=== PATIENT | male | born 1970 | race Two or more races ===

== ENCOUNTER 2022-11-08 13:19 | Emergency (ER) | payer OTHER ==
[2022-11-08] MEDS ORDERED: ASPIRIN 81 MG CHEWABLE TABLET ONE (13:56)
[2022-11-08 14:05] LABS: Hematocrit 40.9 % (39.6-49.0); Lymphocytes % 35.1 % (15.3-44.8); MCV 87.1 fL (80-100); MPV 8.2 fL (7.6-11.3); Platelets 218 thou/uL (152-406)
[2022-11-08 14:21] LABS: BUN Blood Urea Nitrogen 17 mg/dL (7-18); Bicarbonate 27 mEq/L (21-32); Glomerular Filtration Rate 91 ml/min (=/>90); Glucose Level 278 mg/dL (74-106); Magnesium 1.9 mg/dL (1.6-2.4); Potassium 3.6 mEq/L (3.5-5.1); Sodium Level 136 mEq/L (136-145)
[2022-11-08 14:22] LABS: Troponin High Sensitivity < 3.0 pg/mL (<58.9)
--- NOTE | 2022-11-08 14:42 | RAD REPORT ---
EXAM DESCRIPTION: [facility] Single View11/08/2022 2:13 pm CLINICAL HISTORY: CHEST PAIN COMPARISON: No comparisons TECHNIQUE: Portable AP view of the chest. FINDINGS: The lungs are clear. No pneumothorax or effusion. The cardiomediastinal contours are unrem arkable. IMPRESSION: No acute cardiopulmonary process.
--- NOTE | 2022-11-08 15:02 | ER ---
Nurse's Notes [facility] Name: Ricki Elkins Age: 52 yrs Sex: Male : 1970 Arrival Date: 11/08/2022 Time: 13:19 Bed 19 [facility] MD: Diagnosis: Chest pain, unspecified;Hyperglycemia, unspecified Presentation: 11/08 13:37 Chief complaint: Patient states: CP that has been ongoing x 2 days. Worse over the past ss 2 days. Coronavirus screen: Client denies travel out of the [place] in the last 14 days. Ebola Screen: Patient denies exposure to infectious person. Patient denies travel to an Ebola-affected area in the 21 days before illness onset. Initial Sepsis Screen: Does the patient meet any 2 criteria? No. Patient's initial sepsis screen is negative. Does the patient have a suspected source of infection? No. Patient's initial sepsis screen is negative. Risk Assessment: Do you want to hurt yourself or someone else? Patient reports no desire to harm self or others. Onset of symptoms was November 01, 2022. 13:37 Method Of Arrival: EMS: [facility] ss 13:37 Acuity: LUKE 3 ss Historical: - Allergies: 13:40 Depakote; ss 13:40 Erythromycin; ss - PMHx: 13:40 Diabetes mellitus; Depressive disorder; Kidney stone; ss - PSHx: 13:40 Lithotripsy; hernia repair; ss - Immunization history:: Client reports having NOT received the Covid vaccine. - Social history:: Smoking status: Reported history of juuling and/or vaping. Screenin:45 [facility] ED Fall Risk Assessment (Adult) History of falling in the last 3 months, aa5 including since admission No falls in past 3 months (0 pts) Confusion or Disorientation No (0 pts) Intoxicated or Sedated No (0 pts) Impaired Gait No (0 pts) Mobility Assist Device Used No (0 pt) Altered Elimination No (0 pt) Score/Fall Risk Level 0 - 2 = Low Risk Oriented to surroundings, Maintained a safe environment, Educated pt \T\ family on fall prevention, incl call for assistance when getting out of bed. Abuse screen: Denies threats or abuse. Nutritional screening: No deficits noted. Tuberculosis screening: No symptoms or risk factors identified. Assessment: 13:45 General: Appears comfortable, Behavior is calm, cooperative. Pain: Complains of pain in aa5 left lateral anterior chest Pain does not radiate. Pain currently is 4 out of 10 on a pain scale. Quality of pain is described as aching, Pain began 2-3 days ago. Is intermittent, Aggravated by movement. Neuro: Level of Consciousness is awake, alert, obeys commands, Oriented to person, place, time, situation. Cardiovascular: Reports chest pain, Heart tones S1 S2 present Rhythm is sinus rhythm. Respiratory: Airway is patent Respiratory effort is even, unlabored, Respiratory pattern is regular, symmetrical, Breath sounds are clear bilaterally. Denies cough, shortness of breath. GI: Abdomen is round non-distended, Bowel sounds present X 4 quads. Abd is soft and non tender X 4 quads. Patient currently denies diarrhea, nausea, vomiting. : No signs and/or symptoms were reported regarding the genitourinary system. EENT: Absence of teeth noted. . Derm: Skin is pink, warm \T\ dry. Musculoskeletal: Range of motion: intact in all extremities. 14:15 Reassessment: Patient is alert, oriented x 3, equal unlabored respirations, skin aa5 warm/dry/pink. 15:20 Reassessment: Patient is alert, oriented x 3, equal unlabored respirations, skin aa5 warm/dry/pink. Vital Signs: 13:23 BP 119 / 84; Pulse 91; Resp 17; Temp 97.6(O); Pulse Ox 98% on R/A; rs5 13:37 BP 119 / 84; Pulse 89; Resp 16; Pulse Ox 99% on R/A; Weight 109.77 kg; Height 5 ft. 9 ss in. ; Pain 5/10; 14:15 BP 131 / 64; Pulse 85; Resp 18; Pulse Ox 99% on R/A; rs5 15:00 BP 122 / 72; Pulse 85; Resp 18 S; Temp 97.9(TE); Pulse Ox 98% on R/A; aa5 13:37 Body Mass Index 35.74 (109.77 kg, 175.26 cm) ss 13:37 Pain Scale: Adult ss ED Course: 13:21 Patient arrived in ED. rg4 13:24 Blaine Bojorquez DO is Attending Physician. ms3 13:28 Ying Patel, RN is Primary Nurse. aa5 13:40 Triage completed. ss 13:40 EKG done, by ED staff, reviewed by Blaine Bojorquez DO. aa5 13:40 Arm band placed on right wrist. ss 13:45 Patient has correct armband on for positive identification. Placed in gown. Bed in low aa5 position. Call light in reach. Side rails up X2. Client placed on continuous cardiac and pulse oximetry monitoring. NIBP monitoring applied. 13:50 Initial lab(s) drawn, by me, sent to lab. Inserted saline lock: 20 gauge in right upper aa5 arm, using aseptic technique. Blood collected. 14:14 XRAY Chest (1 view) In Process Unspecified. EDMS 14:52 No provider procedures requiring assistance completed. Patient maintains SpO2 aa5 saturation greater than 95% on room air. 15:02 Caleb Brandt MD is Referral Physician. ms3 15:20 IV discontinued, intact, bleeding controlled, No redness/swelling at site. Pressure aa5 dressing applied. Administered Medications: 13:45 Drug: Aspirin PO Chewable Tablet 324 mg Route: PO; aa5 15:20 Follow up: Response: No adverse reaction aa5 Medication: 15:20 VIS not applicable for this client. aa5 Outcome: 15:02 Discharge ordered by . ms3 15:20 Discharged to home ambulatory, with significant other. aa5 15:20 Condition: stable 15:20 Discharge instructions given to patient, Instructed on discharge instructions, follow up and referral plans. medication usage, Demonstrated understanding of instructions, follow-up care, medications, Prescriptions given X 1. 15:29 Patient left the ED. aa5 Signatures: Dispatcher [employer]DA[employer] Ying Patel, RN RN aa5 Mary Cunningham, ANU RN Dara Quintero rg4 Blaine Bojorquez DO DO ms3 Rene Felix, RN RN rs5
--- NOTE | 2022-11-08 15:03 | EDPHYS ---
Physician Documentation [facility] Name: Ricki Elkins Age: 52 yrs Sex: Male : 1970 Arrival Date: 11/08/2022 Time: 13:19 Bed 19 Private MD: ED Physician Blaine Bojorquez HPI: 11/08 13:47 This 52 yrs old [place] Male presents to ER via EMS with complaints of Chest Pain, ms3 Breathing Difficulty. 13:47 52-year-old male with past medical history of diabetes presents for 1 week of chest ms3 pain that is become worse over the last 2 days. The pain is rated a 5/10 and described as stabbing. Shortness of breath is associated with patient's symptoms. Patient states the pain is worse with movement. Patient states the pain improves when pressure is applied to the area. Patient notes he did unload a trailer and move a 150 pound [place] off the trailer.. Historical: - Allergies: 13:40 Depakote; ss 13:40 Erythromycin; ss - PMHx: 13:40 Diabetes mellitus; Depressive disorder; Kidney stone; ss - PSHx: 13:40 Lithotripsy; hernia repair; ss - Immunization history:: Client reports having NOT received the Covid vaccine. - Social history:: Smoking status: Reported history of juuling and/or vaping. ROS: 13:47 Constitutional: Negative for fever, and chills. ENT: Negative for injury, pain, and ms3 discharge, Neck: Negative for injury, pain, and swelling, Cardiovascular: Negative for chest pain, and palpitations. Abdomen/GI: Negative for abdominal pain, nausea, vomiting, diarrhea, and constipation. 13:47 MS/Extremity: Negative for injury and deformity, Skin: Negative for injury, rash, and discoloration. 13:47 Respiratory: Positive for shortness of breath. 13:47 All other systems are negative. Exam: 13:47 Constitutional: This is a well developed, well nourished patient who is awake, alert, ms3 and in no acute distress. Head/Face: Normocephalic, atraumatic. Chest/axilla: Normal chest wall appearance and motion. Nontender with no deformity. Cardiovascular: Regular rate and rhythm with a normal S1 and S2. No gallops, murmurs, or rubs. Normal PMI, no JVD. No pulse deficits. Respiratory: Lungs have equal breath sounds bilaterally, clear to auscultation and percussion. No rales, rhonchi or wheezes noted. No increased work of breathing, no retractions or nasal flaring. Abdomen/GI: Soft, non-tender, with normal bowel sounds. No distension or tympany. No guarding or rebound. No evidence of tenderness throughout. Skin: Warm, dry with normal turgor. Normal color with no rashes, no lesions, and no evidence of cellulitis. MS/ Extremity: Pulses equal, no cyanosis. Neurovascular intact. Full, normal range of motion. 13:47 ECG was reviewed by the Attending Physician. Vital Signs: 13:23 BP 119 / 84; Pulse 91; Resp 17; Temp 97.6(O); Pulse Ox 98% on R/A; rs5 13:37 BP 119 / 84; Pulse 89; Resp 16; Pulse Ox 99% on R/A; Weight 109.77 kg; Height 5 ft. 9 ss in. ; Pain 5/10; 14:15 BP 131 / 64; Pulse 85; Resp 18; Pulse Ox 99% on R/A; rs5 15:00 BP 122 / 72; Pulse 85; Resp 18 S; Temp 97.9(TE); Pulse Ox 98% on R/A; aa5 13:37 Body Mass Index 35.74 (109.77 kg, 175.26 cm) ss 13:37 Pain Scale: Adult ss MDM: 13:35 Patient medically screened. ms3 14:35 Independent interpretation of the following test(s) in the Emergency Department EKG: ms3 See my EKG interpretation above X-Ray: My interpretation is CXR image reviewed by me: negative acute. telemetry monitor: rate is 83 beats/min, Rhythm is normal sinus rhythm, regular, with no ectopy, Interpretation: normal rate, normal rhythm. 15:00 Differential diagnosis: abnormal EKG, acute myocardial infarction, coronary artery ms3 disease. HEART Score: History: Slightly Suspicious (0), ECG: Normal (0), Age: > 45 and < 65 years (1), Risk Factors: 1 or 2 risk factors (1), [DM] [Active Smoker] Troponin: < or = 1 x Normal Limit (0), Total Score = 2. The patient was given aspirin in the Emergency Department. Data reviewed: vital signs, nurses notes, lab test result(s), EKG, radiologic studies, and as a result, I will discharge patient. Consideration of Admission/Observation Escalation of care including admission/observation considered. HEART score 2, Troponin negative. I considered the following discharge prescriptions or medication management in the emergency department Medications were administered in the Emergency Department. See MAR. Counseling: I had a detailed discussion with the patient and/or guardian regarding: the historical points, exam findings, and any diagnostic results supporting the discharge/admit diagnosis, lab results, radiology results, the need for outpatient follow up, to return to the emergency department if symptoms worsen or persist or if there are any questions or concerns that arise at home. Special discussion: Based on the patient's history, exam, and Dx evaluation, there is no indication for emergent intervention or inpatient Tx. It is understood by the patient/guardian that if the Sx's persist or worsen they need to return immediately for re-evaluation. ED course: Discussed labs, chest x-ray, EKG with patient and his . Patient to follow-up with Dr. Brandt in 1 to 2 days. Patient understands and agrees with plan. All questions were answered. Return precautions discussed include worsening symptoms, or any other concerns. 11/08 13:36 Order name: Basic Metabolic Panel; Complete Time: 14:33 ms3 11/08 13:36 Order name: CBC with Diff; Complete Time: 14:33 ms3 11/08 13:36 Order name: Magnesium; Complete Time: 14:33 ms3 11/08 13:36 Order name: Troponin HS; Complete Time: 14:33 ms3 11/08 13:36 Order name: XRAY Chest (1 view); Complete Time: 14:56 ms3 11/08 13:36 Order name: EKG; Complete Time: 13:36 ms3 11/08 13:36 Order name: Cardiac monitoring; Complete Time: 13:39 ms3 11/08 13:36 Order name: EKG - Nurse/Tech; Complete Time: 13:40 ms3 11/08 13:36 Order name: IV Saline Lock; Complete Time: 13:55 ms3 11/08 13:36 Order name: Labs collected and sent; Complete Time: 13:55 ms3 11/08 13:36 Order name: O2 Per Protocol; Complete Time: 13:40 ms3 11/08 13:36 Order name: O2 Sat Monitoring; Complete Time: 13:40 ms3 EC:47 Rate is 83 beats/min. Rhythm is regular. QRS [place] is Normal. MI interval is normal. QRS ms3 interval is normal. Clinical impression: Normal ECG. Interpreted by me. Reviewed by me. Administered Medications: 13:45 Drug: Aspirin PO Chewable Tablet 324 mg Route: PO; aa5 15:20 Follow up: Response: No adverse reaction aa5 Disposition Summary: 11/08/22 15:02 Discharge Ordered Location: Home ms3 Condition: Stable ms3 Diagnosis - Chest pain, unspecified ms3 - Hyperglycemia, unspecified ms3 Followup: ms3 - With: Caleb Brandt MD - When: 1 - 2 days - Reason: Recheck today's complaints Discharge Instructions: - Discharge Summary Sheet ms3 - Nonspecific Chest Pain, Adult ms3 - Hyperglycemia ms3 Forms: - Family Work Release bd - Medication Reconciliation Form ms3 - Thank You Letter ms3 - Antibiotic Education ms3 - Prescription Opioid Use ms3 - Patient Portal Instructions ms3 - Leadership Thank You Letter ms3 Prescriptions: - Ibuprofen 600 mg Oral Tablet - take 1 tablet by ORAL route every 6 hours As needed take with food; 30 tablet; ms3 Refills: 0, Product Selection Permitted Signatures: Dispatcher [employer] Ying Logan, RN RN aa5 Mary Cunningham RN RN ss Blaine Bojorquez, DO DO ms3
[2022-11-08 16:34] VITALS: TEMP 97.6
[2022-11-08 16:40] VITALS: O2SAT 99
[2022-11-08 16:41] VITALS: BP 131/64
--- NOTE | 2022-11-09 18:29 | EKG ---
Test Date: 2022-11-08 Test Time: 13:37:54 Brusher: DANIELLE MEASUREMENT RESULTS: Intervals: Rate: 83 HI: 170 QRSD: 96 QT: 372 QTc: 437 [place]: P: 9 HI: 170 QRS: -4 T: 44 INTERPRETIVE STATEMENTS: Normal sinus rhythm Normal ECG No previous ECG available for comparison Electronically Signed On 11-09-22 18:26:14 CDT by Caleb Brandt
== END 2022-11-08 15:29 | disposition home or self-care (01) ==
LOC: ER 13:19
DX: R07.9 Chest pain, unspecified (principal); E11.65 Type 2 diabetes mellitus with hyperglycemia; Z88.3 Allergy status to other anti-infective agents; Z88.8 Allergy status to other drugs, medicaments and biological substances
CPT/HCPCS: 36415; 71045; 80048; 83735; 84484; 85025; 93005; 99285

== ENCOUNTER → 2023-04-24 | Emergency (ER) | payer SELFPAY ==
[~2023-04-24] MED LIST: MORPHINE 4 MG/ML SYR ONE; NA CHLORIDE 0.9% 1,000 ML ONE; ONDANSETRON 4 MG/2 ML VIAL ONE
[2023-04-24 13:12] LABS: Absolute Lymphocytes (CBC) 1.7 K/uL (0.7-4.9); Hematocrit 44.7 % (39.6-49.0); MPV 8.5 fL (7.6-11.3); Platelets 200 thou/uL (152-406); RBC Red Blood Cell Count 5.26 M/uL (4.33-5.43)
[2023-04-24 13:21] LABS: Specific Gravity > 1.030 (1.005-1.030); Urine Bacteria None Seen /HPF (<20); Urine Bilirubin NEGATIVE (Negative); Urine Blood Trace (Negative); Urine Clarity Clear (Clear); Urine Color Colorless (Yellow); Urine Glucose 4+ (Over) (Negative); Urine Protein 1+ (Negative); Urine RBC <5 /HPF (None Seen); Urine Urobilinogen Normal (Normal)
[2023-04-24 13:25] LABS: Protime INR 0.98
[2023-04-24 13:34] LABS: Bilirubin Total 0.5 mg/dL (0.2-1.0); Potassium 4.1 mEq/L (3.5-5.1)
--- NOTE | 2023-04-24 15:09 | RAD REPORT ---
EXAM DESCRIPTION: CT - Abdomen Pelvis W Contrast - 04/24/2023 1:42 pm CLINICAL HISTORY: ab pain, rectal bleeding COMPARISON: No comparisons TECHNIQUE: Thin cut axial CT imaging of the abdomen and pelvis was performed following intravenous a dministration of 100 mL Isovue 300. Multiplanar reformats were generated and reviewed. All CT scans are performed using dose optimization technique as appropriate and may include automated exposure control or mA/KV adjustment according to patient size. FINDINGS: No suspicious findings in the lung bases. The liver, spleen, adrenal glands, and pancreas show no suspicious findings. Gallbladder and biliary tree are also without suspicious finding. Symmetric renal function is seen with no hydronephrosis or suspicious renal mass. Left lower pole non obstructing 7 mm calculus. Multiple cortical fluid density cysts, not exceeding 1.8 cm, most are subo ptimally characterized given size. No dilated bowel loops or bowel wall thickening. The appendix is unremarkable. No free air, free flui d or inflammatory stranding. Large infraumbilical hernia containing nondistended loops of small bowel , hernia sac measures 1.4 x 6.8 cm. Small right inguinal fat containing hernia. No mass or bulky lymp hadenopathy. The urinary bladder is without significant finding. No suspicious bony findings. IMPRESSION: Left lower pole nonobstructing 7 mm calculus. No other acute intra-abdominal process. Large infraumbilical hernia containing nondistended loops of small bowel.
--- NOTE | 2023-04-24 15:34 | EDPHYS ---
Physician Documentation [facility] Name: Ricki Elkins Age: 52 yrs Sex: Male : 1970 Arrival Date: 04/24/2023 Time: 10:45 Bed 20 Private MD: ED Physician Dae Mccallum HPI: 04/24 17:38 This 52 yrs old [place] Male presents to ER via Ambulatory with complaints of Rectal rt Bleeding. 17:38 Patient presents to the ED with lower abdominal pain, rectal bleeding described as rt maroon-colored stools starting last night. He did have a bowel movement that was a brown stool. Denies other acute complaints at this time, symptoms are moderate severity, no other aggravating elevating factors.. Historical: - Allergies: 10:59 Depakote; bp 10:59 Erythromycin; bp - PMHx: 10:59 depressive disorder; diabetes mellitus; Kidney stone; bp - PSHx: 10:59 hernia repair; Lithotripsy; bp - Immunization history:: Adult Immunizations up to date. - Social history:: Smoking status: unknown. - Family history:: not pertinent. ROS: 17:38 Constitutional: Negative for fever, chills, and weight loss, Cardiovascular: Negative rt for chest pain, palpitations, and edema, Respiratory: Negative for shortness of breath, cough, wheezing, and pleuritic chest pain, MS/Extremity: Negative for injury and deformity, Skin: Negative for injury, rash, and discoloration, Neuro: Negative for headache, weakness, numbness, tingling, and seizure, Psych: Negative for depression, anxiety, suicide ideation, homicidal ideation, and hallucinations, 17:38 Abdomen/GI: Positive for abdominal pain, rectal bleeding, Exam: 17:38 Constitutional: This is a well developed, well nourished patient who is awake, alert, rt and in no acute distress. Head/Face: Normocephalic, atraumatic. Chest/axilla: Normal chest wall appearance and motion. Nontender with no deformity. No lesions are appreciated. Cardiovascular: Regular rate and rhythm with a normal S1 and S2. No gallops, murmurs, or rubs. Normal PMI, no JVD. No pulse deficits. Respiratory: Lungs have equal breath sounds bilaterally, clear to auscultation and percussion. No rales, rhonchi or wheezes noted. No increased work of breathing, no retractions or nasal flaring. Skin: Warm, dry with normal turgor. Normal color with no rashes, no lesions, and no evidence of cellulitis. MS/ Extremity: Pulses equal, no cyanosis. Neurovascular intact. Full, normal range of motion. Neuro: Awake and alert, GCS 15, oriented to person, place, time, and situation. Cranial nerves II-XII grossly intact. Motor strength 5/5 in all extremities. Sensory grossly intact. Cerebellar exam normal. Normal gait. Psych: Awake, alert, with orientation to person, place and time. Behavior, mood, and affect are within normal limits. 17:38 Abdomen/GI: Large easily reducible hernia to the lower abdomen, no focal tenderness otherwise, distention. There is a skin tag at the anal verge, rectal exam reveals brown stool, no palpable hemorrhoids, Vital Signs: 10:58 BP 154 / 94; Pulse 81; Resp 16; Temp 98.1; Pulse Ox 98% ; bp 13:05 BP 122 / 72; Pulse 78; Resp 16; Pulse Ox 99% on R/A; ko1 14:56 BP 129 / 78; Pulse 74; Resp 16; Pulse Ox 99% ; ko1 15:44 BP 130 / 74; Pulse 81; Resp 16; Pulse Ox 100% ; ko1 MDM: 11:05 Patient medically screened. rt 17:38 Differential diagnosis: Hemorrhoids, diverticulitis, colitis, hernia. Data reviewed: rt vital signs, nurses notes, lab test result(s), radiologic studies. Consideration of Admission/Observation Escalation of care including admission/observation considered. Patient is requesting discharge, no obvious ongoing bleeding in the emergency department as the patient has an essentially normal rectal exam. Hernia was reduced with improvement of abdominal pain. No other acute findings are found. Patient instructed to follow-up with gastroenterology and general surgery as an outpatient. Return precautions discussed.. I considered the following discharge prescriptions or medication management in the emergency department Medications were administered in the Emergency Department. See MAR. Independent interpretation of the following test(s) in the Emergency Department CT Scan: My interpretation is No bowel obstruction seen on interpretation of CT scan images. Counseling: I had a detailed discussion with the patient and/or guardian regarding the historical points, exam findings, and any diagnostic results supporting the discharge/admit diagnosis, lab results, radiology results, the need for outpatient follow up, to return to the emergency department if symptoms worsen or persist or if there are any questions or concerns that arise at home. Response to treatment: the patient's symptoms have markedly improved after treatment. 04/24 11:08 Order name: CBC with Diff; Complete Time: 13:28 rt 04/24 11:08 Order name: CMP; Complete Time: 13:57 rt 04/24 11:08 Order name: Lipase; Complete Time: 13:57 rt 04/24 11:08 Order name: Urinalysis w/ reflexes; Complete Time: 13:28 rt 04/24 11:08 Order name: Type And Screen; Complete Time: 13:57 rt 04/24 11:08 Order name: PT-INR; Complete Time: 13:28 rt 04/24 11:08 Order name: Ptt, Activated; Complete Time: 13:28 rt 04/24 11:08 Order name: CT Abd/Pelvis - IV Contrast Only; Complete Time: 15:14 rt 04/24 11:08 Order name: IV Saline Lock; Complete Time: 13: rt 04/24 11:08 Order name: Labs collected and sent; Complete Time: 13:01 rt Administered Medications: 13:01 Drug: NS 0.9% IV 1000 ml IV at 1 bolus Per protocol; 1000 mL bolus Route: IV; Rate: 1 ko1 bolus; Site: left forearm; 13:01 Not Given (Patient Refused): ondansetron 4 mg IVP once; over 2 minutes ko1 13:01 Not Given (Patient Refused): morphineor iv 4 mg IVP once over 4 mins ko1 Disposition Summary: 04/24/23 15:33 Discharge Ordered Notes: Location: Home rt Condition: Stable rt Diagnosis - Rectal bleeding, resolved rt - Infraumbilical hernia rt Followup: rt - With: Elvis Mcdermott MD - When: 2 - 3 days - Reason: Followup: rt - With: Sergey Parra MD - When: 2 - 3 days - Reason: Discharge Instructions: - Discharge Summary Sheet rt - Hernia, Adult rt - Rectal Bleeding rt Forms: - Medication Reconciliation Form rt - Thank You Letter rt - Antibiotic Education rt - Prescription Opioid Use rt - Patient Portal Instructions rt - Leadership Thank You Letter rt Prescriptions: - dicyclomine 10 mg Oral capsule - take 1 capsule ORAL route 3 times per day; 15 capsule; Refills: 0, Product rt Selection Permitted Signatures: Dispatcher [facility] Brennen Johnson RN RN bp Savanna Bhatti RN RN ko1 Dae Mccallum MD MD rt
--- NOTE | 2023-04-24 15:34 | ER ---
Nurse's Notes [facility] Name: Ricki Elkins Age: 52 yrs Sex: Male : 1970 Arrival Date: 04/24/2023 Time: 10:45 Bed 20 Private MD: Diagnosis: Rectal bleeding, resolved;Infraumbilical hernia Presentation: 04/24 10:58 Chief complaint: Patient states: SEVERAL BLOODY BM SINCE LAST PM. Coronavirus screen: bp At this time, the client does not indicate any symptoms associated with coronavirus-19. Ebola Screen: No symptoms or risks identified at this time. Initial Sepsis Screen: Does the patient meet any 2 criteria? No. Patient's initial sepsis screen is negative. Does the patient have a suspected source of infection? No. Patient's initial sepsis screen is negative. Risk Assessment: Do you want to hurt yourself or someone else?. Onset of symptoms is unknown. 10:58 Method Of Arrival: Ambulatory bp 10:58 Acuity: LUKE 3 bp Triage Assessment: 10:59 General: Appears uncomfortable, Behavior is calm, cooperative, appropriate for age. bp Pain: Complains of pain in left flank. Historical: - Allergies: 10:59 Depakote; bp 10:59 Erythromycin; bp - PMHx: 10:59 depressive disorder; diabetes mellitus; Kidney stone; bp - PSHx: 10:59 hernia repair; Lithotripsy; bp - Immunization history:: Adult Immunizations up to date. - Social history:: Smoking status: unknown. - Family history:: not pertinent. Screenin:00 [facility] ED Fall Risk Assessment (Adult) History of falling in the last 3 months, ko1 including since admission No falls in past 3 months (0 pts) Confusion or Disorientation No (0 pts) Intoxicated or Sedated No (0 pts) Impaired Gait No (0 pts) Mobility Assist Device Used No (0 pt) Altered Elimination No (0 pt) Score/Fall Risk Level 0 - 2 = Low Risk Oriented to surroundings, Maintained a safe environment, Educated pt \T\ family on fall prevention, incl call for assistance when getting out of bed, Assessed \T\ reinforced patient's understanding of fall precautions, Provided non-skid footwear, Hourly rounding (assess needs \T\ fall precautionary measures) done, Used ambulatory aids as needed (educated on \T\ assisted with), Used gait belt as appropriate. Abuse screen: Denies threats or abuse. Denies injuries from another. Nutritional screening: No deficits noted. Tuberculosis screening: No symptoms or risk factors identified. Assessment: 13:00 General: Appears in no apparent distress. Behavior is calm, cooperative, appropriate ko1 for age. Pain: Denies pain. Neuro: No deficits noted. Cardiovascular: No deficits noted. Respiratory: No deficits noted. GI: Reports rectal bleeding. : No deficits noted. EENT: No deficits noted. Derm: No deficits noted. Musculoskeletal: No deficits noted. Vital Signs: 10:58 BP 154 / 94; Pulse 81; Resp 16; Temp 98.1; Pulse Ox 98% ; bp 13:05 BP 122 / 72; Pulse 78; Resp 16; Pulse Ox 99% on R/A; ko1 14:56 BP 129 / 78; Pulse 74; Resp 16; Pulse Ox 99% ; ko1 15:44 BP 130 / 74; Pulse 81; Resp 16; Pulse Ox 100% ; ko1 ED Course: 10:49 Patient arrived in ED. im 10:59 Triage completed. bp 10:59 Dae Mccallum MD is Attending Physician. rt 10:59 Arm band placed on. bp 12:36 Savanna Bhatti, ANU is Primary Nurse. ko1 12:57 Accessed peripheral vein via ultrasound, utilizing dynamic ultrasound technique Blood cm10 collected. 20G in Left FA Missed attempt(s): 20 gauge in right forearm. antecubital area. Bleeding controlled, band aid applied, catheter tip intact. 13:00 Patient has correct armband on for positive identification. Placed in gown. Bed in low ko1 position. Call light in reach. Side rails up X 1. Client placed on continuous cardiac and pulse oximetry monitoring. NIBP monitoring applied. nurse monitoring on. Door closed. Noise minimized. Lights dimmed. Warm blanket given. 13:01 Type And Screen Sent. ko1 13:01 PT-INR Sent. ko1 13:01 Ptt, Activated Sent. ko1 13:01 CBC with Diff Sent. ko1 13:01 CMP Sent. ko1 13:01 Lipase Sent. ko1 13:03 Urinalysis w/ reflexes Sent. cm10 13:43 CT Abd/Pelvis - IV Contrast Only In Process Unspecified. EDMS 14:56 Provided Education on: na. ko1 14:56 No provider procedures requiring assistance completed. ko1 15:33 Elvis Mcdermott MD is Referral Physician. rt 15:33 Sergey Parra MD is Referral Physician. rt 15:44 IV discontinued, intact, bleeding controlled, No redness/swelling at site. Pressure ko1 dressing applied. Administered Medications: 13:01 Drug: NS 0.9% IV 1000 ml IV at 1 bolus Per protocol; 1000 mL bolus Route: IV; Rate: 1 ko1 bolus; Site: left forearm; 13:01 Not Given (Patient Refused): ondansetron 4 mg IVP once; over 2 minutes ko1 13:01 Not Given (Patient Refused): morphineor iv 4 mg IVP once over 4 mins ko1 Medication: 13:00 VIS not applicable for this client. ko1 Outcome: 15:33 Discharge ordered by . rt 15:44 Discharged to home ambulatory, ko1 15:44 Condition: stable 15:44 Discharge instructions given to patient, Instructed on discharge instructions, follow up and referral plans. medication usage, Demonstrated understanding of instructions, follow-up care, medications, Prescriptions given X 1, 15:50 Patient left the ED. ko1 Signatures: Dispatcher [employer] EDMS Brennen Christie RN RN bp Savanna Bhatti RN RN ko1 Dae Mccallum MD MD rt Coni Tejada Clarissa, RN RN cm10
[2023-04-24 17:30] VITALS: BP 130/74; TEMP 98.1; O2SAT 100
== END ==
LOC: ER 10:45
DX: K42.9 Umbilical hernia without obstruction or gangrene (principal)
CPT/HCPCS: 36415; 74177; 80053; 81001; 83690; 85025; 85610; 85730; 86850; 86900; 86901; J2405; J7030; Q9967

== ENCOUNTER 2024-01-30 19:24 | Emergency (ER) | payer OTHER ==
[2024-01-30] MEDS ORDERED: ONDANSETRON 4 MG/2 ML VIAL ONE (19:43)
[2024-01-30] MEDS ORDERED: MORPHINE 4 MG/ML SYR ONE (19:43)
--- NOTE | 2024-01-30 20:17 | RAD REPORT ---
EXAM: CT brain without contrast HISTORY: PAIN COMPARISON: None TECHNIQUE: Multiple contiguous axial images were obtained and a CT of the brain without contrast. Sag ittal and coronal reformats were performed. One or more of the following dose reduction techniques were used: Automated exposure control, adjust ment of the mA and/or kV according to patient size, and/or iterative reconstruction. FINDINGS: No evidence of hydrocephalus, intracranial hemorrhage, or extra-axial fluid collection. The brain is normal in morphology. No evidence of midline shift or areas of brain edema. The calvarium is intact. The visualized paranasal sinuses and mastoid air cells are essentially clear . IMPRESSION: No evidence of acute intracranial abnormality. EXAM: CT of the cervical spine without contrast HISTORY: Neck pain, injury PAIN TECHNIQUE: Multiple contiguous axial images were obtained in a CT of the cervical spine without contr ast. Sagittal and coronal reformats were performed. FINDINGS: The vertebral bodies demonstrate normal height and alignment. No evidence of acute fracture or subluxation.. Mild multilevel degenerative changes are seen in the lower cervical levels. No prevertebral soft tissue swelling is seen. The posterior facets are well aligned. Normal alignment of the skull base with the cervical spine is seen. The lung apices are unremarkable. IMPRESSION: No evidence of acute osseous abnormality of the cervical spine.
--- NOTE | 2024-01-30 20:23 | RAD REPORT ---
EXAM: CT CHEST, ABDOMEN AND PELVIS WITHOUT CONTRAST CLINICAL INDICATION: [facility] TECHNIQUE: CT chest, abdomen and pelvis was performed without contrast, as per department protocol. A xial, sagittal and coronal reconstructions were obtained. One or more of the following dose reduction techniques were used: Automated exposure control, adjustment of the mA and/or kV according to patient size, and/or iterative reconstruction. Unless otherwise specified, incidental findings do not require dedicated imaging follow-up. Examination is limited by the lack of intravenous contrast material. COMPARISON: No prior exam. FINDINGS: LUNGS: Mild linear atelectasis in both posterior lung bases. PLEURA: No pleural effusion. No pneumothorax. MEDIASTINUM AND LYMPH NODES: No mediastinal mass or fluid collection. Normal size mediastinal, hilar, and axillary lymph nodes. OSSEOUS STRUCTURES AND CHEST WALL: Vertical fracture is present right sternal manubrium. This extends into the right sternoclavicular joint. LIVER: Normal in size and contour. No focal lesion or biliary dilatation. Grossly unremarkable gallbl adder. PANCREAS: No mass, ductal dilation, or [place]-pancreatic fluid. SPLEEN: Normal size. No focal lesion. ADRENALS: Normal; no mass. KIDNEYS: Normal size and contour. No hydronephrosis. URINARY BLADDER: Normal contour. GASTROINTESTINAL TRACT: No bowel obstruction, free air, significant free fluid or abscess. Moderate to large ventral hernia is present along the midline and containing both small and large bowel without obstruction. APPENDIX: Normal appendix. LYMPH NODES: No lymphadenopathy. MUSCULOSKELETAL: Posterior aspect of the right eighth and ninth ribs likely fractured. Equivocal left posterior inferior rib deformities also present. Left transverse L1, L2, L3 process fractures. OTHER: Sigmoid diverticulosis coli without diverticulitis. IMPRESSION: Fracture of the right sternal manubrium extending to the level of the right SC joint. Inferior posterior nondisplaced rib fractures on the right and equivocally on the left as detailed. Left lumbar transverse processes fractures as detailed. Large midline ventral hernia.
[2024-01-30] MEDS ORDERED: HYDROMORPHONE HCL 1 MG/ML INJ ONE (20:37)
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
[2024-01-30 21:58] VITALS: TEMP 97.8
[2024-01-30 22:01] VITALS: BP 146/91; O2SAT 96
== END 2024-01-30 21:36 | disposition home or self-care (01) ==
LOC: ER 19:24
DX: S22.41XA Multiple fractures of ribs, right side, initial encounter for closed fracture (principal); S22.21XA Fracture of manubrium, initial encounter for closed fracture; S12.000A Unspecified displaced fracture of first cervical vertebra, initial encounter for closed fracture; S12.100A Unspecified displaced fracture of second cervical vertebra, initial encounter for closed fracture; S12.200A Unspecified displaced fracture of third cervical vertebra, initial encounter for closed fracture; V49.49XA Driver injured in collision with other motor vehicles in traffic accident, initial encounter
CPT/HCPCS: 70450; 71250; 72125; 74176; J1171; J2405

== ENCOUNTER 2024-06-02 12:18 | Emergency (ER) | payer OTHER ==
--- OUTSIDE RECORDS SUMMARY | 2024-06-02 12:22 | XMS REPORT | Continuity of Care Document ---
Author Name Unknown Address [address] [place] [address] [facility] Address [address] [place] [address] Care Team Providers Care Paralegal Assistant Name Role Phone Jenny Fleming Primary Care Physician Medications Ordered Medication Name Filled Medication Name Start Date Stop Date Current Medication? Ordering Clinician Indication Dosage Frequency Signature (SIG) Comments Components Source Trulicity 0.75 mg/0.5 mL subcutaneou s pen injector 05-28 00:00: 00 Yes mg/0.5 mL Blaise Ureña albuterol sulfate HFA 90 mcg/actuati on aerosol inhaler 05-28 00:00: 00 Yes 1mcg/ac tuation Blaise Ureña cetirizine 10 mg tablet 05-28 00:00: 00 Yes 1mg Blaise Ureña benzonatate 100 mg capsule - 00:00: 00 Yes 12mg Blaise Ureña Protonix 40 mg tablet,reny yed release - 00:00: 00 Yes 1mg Blaise Ureña Janumet XR 100 mg-1,000 mg tablet,exte nded release -20 00:00: 00 Yes 1mg Blaise Ureña ibuprofen 800 mg tablet -20 00:00: 00 Yes 1mg Blaise Ureña cyclobenzap rine 5 mg tablet -20 00:00: 00 Yes 1mg Blaise Ureña Vital Signs Vital Name Observation Time Observation Value Comments S aaron BP Systolic 2024-05-28 09:06:00 145 mm[Hg] Sang Ureña BP Diastolic 2024-05-28 09:06:00 93 mm[Hg] [place] phen F Niranjan Weight Measured 2024-05-28 09:06:00 228.00 pounds Blaise F Niranjan Height Measured 2024-05-28 09:06:00 69.00 inches Blaise F Niranjan Body Temperature 2024-05-28 09:06:00 98.20 degrees Blaise F Niranjan Heart Rate 2024-05-28 09:06:00 85.00 /min Albertina en F Niranjan Respiratory Rate 2024-05-28 09:06:00 19.00 /min Blaise F Niranjan BP Systolic 2024-05-21 13:56:00 134 mm[Hg] Step hen F Niranjan BP Diastolic 2024-05-21 13:56:00 77 mm[Hg] [place] phen F Niranjan Weight Measured 2024-05-21 13:56:00 229.00 pounds Blaise F Niranjan Height Measured 2024-05-21 13:56:00 69.00 inches Blaise F Niranjan Body Temperature 2024-05-21 13:56:00 97.90 degrees Blaise F Niranjan Heart Rate 2024-05-21 13:56:00 93.00 /min Albertina en F Niranjan Respiratory Rate 2024-05-21 13:56:00 18.00 /min Blaise F Niranjan Respiratory Rate 2024-05-16 13:58:00 15.00 /min Blaise F Niranjan BP Systolic 2024-05-16 13:58:00 138 mm[Hg] Step hen F Niranjan BP Diastolic 2024-05-16 13:58:00 77 mm[Hg] [place] phen F Niranjan Weight Measured 2024-05-16 13:58:00 224.00 pounds Blaise F Niranjan Height Measured 2024-05-16 13:58:00 69.00 inches Blaise F Niranjan Body Temperature 2024-05-16 13:58:00 97.80 degrees Blaise F Niranjan Heart Rate 2024-05-16 13:58:00 94.00 /min Albertina en F Niranjan Encounters Start Date/Time End Date/Time Encounter Type Admission Type Attending [facility] Care Department Encounter ID Source 2024-05-31 09:33:48 2024-05-31 09:33:[address] [facility] [id number] Blaise F Niranjan 2024-05-28 08:47:38 2024-05-28 08:47:38 Outpatient SFA [id number] [id number] Blaise Ureña 2024-05-28 00:00:00 2024-05-28 00:00:00 Outpatient Visit SFA [id number] Blaise Ureña 2024-05-21 13:44:09 2024-05-21 13:44:09 Outpatient SFA SFA [id number] Blaise Ureña 2024-05-21 00:00:00 2024-05-21 00:00:00 Outpatient Visit SFA [id number] Blaise Ureña 2024-05-17 12:13:08 2024-05-17 12:13:08 Outpatient SFA SFA [id number] Blaise Ureña 2024-05-16 13:57:46 2024-05-16 13:57:46 Outpatient SFA SFA [id number] Blaise Ureña 2024-05-16 00:00:00 2024-05-16 00:00:00 Outpatient Visit SFA [id number] Blaise Carol Niranjan Results Test Description Test Time Test Comments Results Result Co mments Source Blaise Ureña Notes Date/Time Note Provider Source Blaise Mast [facility]2025-02-25 00:00:[address] [facility]2025-02-20 00:00:[address] [facility]
--- NOTE | 2024-06-02 15:11 | RAD REPORT ---
Procedure: Chest Pa And Lat (2 Views) HISTORY: Cough COMPARISON: 2021 FINDINGS: The lungs appear clear of acute infiltrate. No significant pleural effusion noted. The heart is normal size. IMPRESSION: No acute abnormality is displayed.
[2024-06-02 15:26] LABS: Influenza A Ag Negative; Influenza B Ag Negative; SARS-CoV-2 Antigen Rapid Res Negative (Negative)
--- NOTE | 2024-06-02 15:40 | ER ---
Nurse's Notes [facility] Name: Ricki Elkins Age: 53 yrs Sex: Male : 1970 Arrival Date: 06/02/2024 Time: 12:18 Bed 10 Private MD: Diagnosis: Acute upper respiratory infection, unspecified Presentation: 06/02 12:46 Chief complaint: Patient states: COUGH FLU AND CONGESTION X 3 WEEKS. TRIED MUCINEX D. db STATES SPOUSE WAS ADMITTED LAST MONTH. STATES HAS A ABDOMINAL HERNIA THAT IS PUSHING OUT WITH COUGH. FEELS UNCOMFORTABLE AND HAS BODY ACHES. STATES "PASSED KIDNEY STONE" LAST NIGHT. Coronavirus screen: Client denies travel out of the [place] in the last 14 days. At this time, the client does not indicate any symptoms associated with coronavirus-19. Ebola Screen: Patient negative for fever greater than or equal to 101.5 degrees Fahrenheit, and additional compatible Ebola Virus Disease symptoms Patient denies exposure to infectious person. Patient denies travel to an Ebola-affected area in the 21 days before illness onset. No symptoms or risks identified at this time. Initial Sepsis Screen: Does the patient meet any 2 criteria? No. Patient's initial sepsis screen is negative. Does the patient have a suspected source of infection? No. Patient's initial sepsis screen is negative. Risk Assessment: Do you want to hurt yourself or someone else? Patient reports no desire to harm self or others. Onset of symptoms was May 16, 2024. 12:46 Method Of Arrival: Ambulatory db 12:46 Acuity: LUKE 3 db Triage Assessment: 12:51 General: Appears in no apparent distress. uncomfortable, Behavior is calm, cooperative. db Neuro: Level of Consciousness is awake, alert, obeys commands, Oriented to person, place, time, situation. Respiratory: Airway is patent Respiratory effort is even, unlabored, Respiratory pattern is regular, symmetrical. Historical: - Allergies: 12:51 Depakote; db 12:51 Erythromycin; db - PMHx: 12:51 depressive disorder; diabetes mellitus; Kidney stone; db - PSHx: 12:51 hernia repair; Lithotripsy; db - Immunization history:: Adult Immunizations unknown. - Infectious Disease History:: Denies. - Social history:: Smoking status: Reported history of juuling and/or vaping. Assessment: 16:02 Reassessment: Patient appears in no apparent distress at this time. Patient and/or jb4 family updated on plan of care and expected duration. Pain level reassessed. Patient is alert, oriented x 3, equal unlabored respirations, skin warm/dry/pink. denies allergy to Azithromycin. Vital Signs: 12:46 Weight 99.79 kg; Height 5 ft. 9 in. ; db 12:46 Body Mass Index 32.49 (99.79 kg, 175.26 cm) db ED Course: 12:22 Patient arrived in ED. al6 12:32 Guillaume Marroquin PA is PHCP. cp 12:32 Guillaume Dela Cruz MD is Attending Physician. cp 12:48 Triage completed. db 12:52 Arm band placed on right wrist. db 15:00 XRAY Chest Pa And Lat (2 Views) In Process Unspecified. EDMS 16:02 No provider procedures requiring assistance completed. Patient did not have IV access jb4 during this emergency room visit. Administered Medications: No medications were administered Medication: 16:02 VIS not applicable for this client. jb4 Point of Care Testing: Blood Glucose: 12:51 Blood Glucose: 269 mg/dL; db Ranges: Outcome: 15:40 Discharge ordered by MD. cp 16:02 Discharged to home ambulatory, with family, [facility] 16:02 Condition: stable 16:02 Discharge instructions given to patient, Instructed on discharge instructions, follow up and referral plans. medication usage, Demonstrated understanding of instructions, follow-up care, medications, Prescriptions given X 3, 16:03 Patient left the ED. jb4 Signatures: Dispatcher [employer] EDTN Guillaume Marroquin PA PA cp Bryson, James, RN RN jb4 Ramona Vidal RN RN db Katelyn Mai al6
--- NOTE | 2024-06-02 15:40 | EDPHYS ---
Physician Documentation [facility] Name: Ricki Elkins Age: 53 yrs Sex: Male : 1970 Arrival Date: 06/02/2024 Time: 12:18 Bed 10 Private MD: DANIEL Physician Guillaume Dela Cruz HPI: 06/02 15:25 This 53 yrs old [place] Male presents to ER via Ambulatory with complaints of Flu cp Symptoms, hernia. 15:25 The patient or guardian reports cough, with productive sputum. cp 15:25 Onset: The symptoms/episode began/occurred 3 week(s) ago. Associated signs and cp symptoms: Pertinent positives: congestion, Pertinent negatives: chest pain, diarrhea, vomiting. Severity of symptoms: in the emergency department the symptoms are unchanged despite home interventions. Historical: - Allergies: 12:51 Depakote; db 12:51 Erythromycin; db - PMHx: 12:51 depressive disorder; diabetes mellitus; Kidney stone; db - PSHx: 12:51 hernia repair; Lithotripsy; db - Immunization history:: Adult Immunizations unknown. - Infectious Disease History:: Denies. - Social history:: Smoking status: Reported history of juuling and/or vaping. ROS: 15:30 Constitutional: Positive for body aches, Negative for fever, poor PO intake, cp 15:30 Eyes: Negative for injury, pain, redness, and discharge, cp 15:30 ENT: Negative for drainage from ear(s), ear pain, difficulty swallowing, difficulty handling secretions, 15:30 Cardiovascular: Negative for chest pain, edema, palpitations, 15:30 Respiratory: Positive for cough, "sounds productive", Negative for wheezing, 15:30 Abdomen/GI: Negative for abdominal pain, vomiting, diarrhea, constipation, 15:30 Neuro: Negative for altered mental status, 15:30 All other systems are negative, Exam: 15:35 Constitutional: The patient appears in no acute distress, alert, awake, non-toxic, well cp developed, well nourished, 15:35 Head/Face: Normocephalic, atraumatic. cp 15:35 Eyes: Periorbital structures: appear normal, Conjunctiva: normal, no exudate, no injection, Sclera: no appreciated abnormality, Lids and lashes: appear normal, bilaterally, 15:35 ENT: External ear(s): are unremarkable, Nose: is normal, Mouth: Lips: moist, Oral mucosa: moist, Posterior pharynx: Airway: no evidence of obstruction, patent, Tonsils: no enlargement, no exudate, erythema, that is mild, 15:35 Neck: ROM/movement: is normal, is supple, without pain, no range of motions limitations, 15:35 Chest/axilla: Inspection: normal, 15:35 Respiratory: the patient does not display signs of respiratory distress, Respirations: normal, no use of accessory muscles, no retractions, labored breathing, is not present, Breath sounds: bronchial sounds, that are mild, are heard diffusely, 15:35 Abdomen/GI: Inspection: distension, is not seen, 15:35 Neuro: Orientation: to person, place \\T\\ time. Mentation: is normal, Vital Signs: 12:46 Weight 99.79 kg; Height 5 ft. 9 in. ; db 12:46 Body Mass Index 32.49 (99.79 kg, 175.26 cm) db MDM: 12:47 Medical Screening Exam initiated cp 15:40 Data reviewed: vital signs, nurses notes, lab test result(s), radiologic studies, plain cp films. 15:40 Differential diagnosis: bronchitis, flu, pneumonia. Counseling: I had a detailed cp discussion with the patient and/or guardian regarding the historical points, exam findings, and any diagnostic results supporting the discharge/admit diagnosis, lab results, radiology results, to return to the emergency department if symptoms worsen or persist or if there are any questions or concerns that arise at home. 06/02 13:03 Order name: Glucose, Ancillary Testing; Complete Time: 15:23 [facility] 06/02 14:28 Order name: Group A Streptococcus Rapid; Complete Time: 15:39 cp 06/02 14:28 Order name: COVID-19 Ag + Flu A+B Ag; Complete Time: 15:39 cp 06/02 15:29 Order name: Throat Culture EDNE 06/02 14:28 Order name: XRAY Chest Pa And Lat (2 Views); Complete Time: 15:23 cp Administered Medications: No medications were administered Point of Care Testing: Blood Glucose: 12:51 Blood Glucose: 269 mg/dL; db Ranges: Critical Glucose Levels:Adult <50 mg/dl or >400 mg/dl <40 mg/dl or >180 mg/dl Disposition Summary: 06/02/24 15:40 Discharge Ordered Notes: Location: Home cp Problem: new cp Symptoms: have improved cp Condition: Stable cp Diagnosis - Acute upper respiratory infection, unspecified cp Followup: cp - With: Private Physician - When: 2 - 3 days - Reason: Worsening of condition Discharge Instructions: - Discharge Summary Sheet cp - Upper Respiratory Infection, Adult cp - Cough, Adult cp Forms: - Medication Reconciliation Form cp - Antibiotic Education cp - Prescription Opioid Use cp - Patient Portal Instructions cp - Leadership Thank You Letter cp Prescriptions: - Bromfed DM 2-30-10 mg/5 mL Oral syrup - administer 10 milliliter ORAL route every 6-8 hours as needed for cold cp symptoms; 240 milliliter; Refills: 0, Product Selection Permitted - Ibuprofen 800 mg Oral Tablet - take 1 tablet ORAL route every 8 hours As needed take with food; 30 tablet; cp Refills: 0, Product Selection Permitted - Zithromax Z-Jose R 250 mg Oral Tablet - take 1 tablet ORAL route as directed for 5 days Day 1 - take two (2) tablets cp one time. Day 2, 3, 4 , 5 take one (1) tablet once daily.; 6 tablet; Refills: 0, Product Selection Permitted Signatures: Dispatcher [employer] EDMS Guillaume Marroquin PA PA cp Benton, Danielle, RN RN db Corrections: (The following items were deleted from the chart) 14:28 14:28 Group A Streptococcus Rapid Sc+I.LAB.BRZ ordered. EDMS EDMS 14:28 14:28 COVID-19 Ag + Flu A+B Ag+I.LAB.BRZ ordered. EDMS EDMS 14:28 14:28 Chest Pa And Lat (2 Views)+RAD.RAD.BRZ ordered. EDMS EDMS
== END 2024-06-02 16:03 | disposition home or self-care (01) ==
LOC: ER 12:18
DX: J06.9 Acute upper respiratory infection, unspecified (principal); Z11.52 Encounter for screening for COVID-19
CPT/HCPCS: 36415; 71046; 82947; 87070; 87428; 99283